=== PATIENT | male | born 1965 | race Caucasian/White ===

== ENCOUNTER 2021-12-01 15:23 | Emergency (ER) | payer BC ==
[2021-12-01] MEDS ORDERED: Metoprolol Tartrate 50 MG Tab PO STA (15:45)
== END 2021-12-01 17:20 | disposition home or self-care (01) ==
LOC: FB.ED 15:23
DX: I48.91 Unspecified atrial fibrillation (principal)
CPT/HCPCS: 36415; 84484; 99284; A9270; 99282